=== PATIENT | male | born 1970 | race Caucasian/White ===

== ENCOUNTER 2019-02-16 10:37 | Inpatient (IN) | payer MEDICAID ==
[~2019-02-16] VITALS: Ht 170.2 cm; Wt 68.3 kg
[2019-02-16] MEDS ORDERED: SODIUM CHLORIDE 0.9% 1,000 ML IV ONE ×2 (10:55→12:06)
[2019-02-16] MEDS ORDERED: LEVETIRACETAM 1000MG/100ML 100 ML IV ONE (11:00)
[2019-02-16 11:10] LABS: HEMOGLOBIN. 15.4 g/dL (14.0-18.0); MEAN CORPUSCULAR HEMOGLOBIN 33.9 pg (28.0-32.0); MEAN CORPUSCULAR VOLUME 99.5 fL (80.0-94.0); PLATELET 197 x1000/uL (130-400); RED BLOOD CELL COUNT 4.53 mill/uL (4.7-6.1); RED CELL DISTRIBUTION WIDTH 12.9 % (11.6-14.6)
[2019-02-16 11:14] LABS: CHLORIDE 105 mEq/L (98-107)
[2019-02-16 11:17] LABS: INR 1.1; PARTIAL THROMBOPLASTIN TIME 25.7 sec (23.4-31.0); PROTHROMBIN TIME 11.1 sec (9.1-11.1)
[2019-02-16 11:18] LABS: ETHANOL BLOOD < 10 mg/dL
[2019-02-16 12:12] LABS: PLATELET ESTIMATE NORMAL
[2019-02-16] MEDS ORDERED: HYDROMORPHONE HCL/PF 2MG/ML CPJ IV PRN (12:30)
[2019-02-16] MEDS ORDERED: LORAZEPAM 2MG/ML CPJ IV ONE (12:30)
[2019-02-16] MEDS ORDERED: DIPHENHYDRAMINE 50MG/ML VIAL IV PRN (12:30)
[2019-02-16] MEDS ORDERED: CLONIDINE 0.1MG TABLET PO PRN (12:30)
[2019-02-16] MEDS ORDERED: GUAIFENESIN 200MG/10ML SUGAR FREE UDC PO PRN (12:30)
[2019-02-16] MEDS ORDERED: DOCUSATE SODIUM 100MG CAPSULE PO PRN (12:30)
[2019-02-16] MEDS ORDERED: POTASSIUM CHLORIDE 20MEQ TABLET SR PO ONE (12:30)
[2019-02-16] MEDS ORDERED: NA PHOS,M-B/NA PHOS,DI-BA ENEMA 118ML PR PRN (12:30)
[2019-02-16] MEDS ORDERED: ONDANSETRON HCL 4MG/2ML INJ IV PRN (12:30)
[2019-02-16] MEDS ORDERED: IPRATROPIUM/ALBUTEROL 0.5-3(2.5)MG/3ML NEB INH PRN (12:30)
[2019-02-16] MEDS ORDERED: ACETAMINOPHEN 325MG TABLET PO PRN (12:30)
[2019-02-16] MEDS ORDERED: MAGNESIUM/ALUMINUM HYDROXIDE/SIMETHICONE 30ML UDC PO PRN (12:30)
[2019-02-16] MEDS ORDERED: LORAZEPAM 2MG/ML CPJ IV PRN (12:30)
[2019-02-16 17:37] VITALS: BP 115/73
[2019-02-16] MEDS ORDERED: OMEP20TA2 PO (18:24)
[2019-02-16] MEDS ORDERED: SERT20OR PO (18:24)
[2019-02-16] MEDS ORDERED: TRAZ-212 PO (18:24)
[2019-02-16] MEDS: HYDROCODONE/ACETAMINOPHEN 5/325MG TABLET PO PRN ×2 (18:45→23:50)
[2019-02-16] MEDS: SODIUM CHLORIDE 0.45% 1,000 ML IV SCH (18:59)
[2019-02-16 20:00] VITALS: BP 108/60
[2019-02-16 20:09] LABS: CHLORIDE 109 mEq/L (98-107)
[2019-02-16] MEDS: ENOXAPARIN 40MG/0.4ML SYR SUBCUT SCH (20:33)
[2019-02-17] VITALS: BP 130/64
[2019-02-17 04:00] VITALS: BP 108/59
[2019-02-17 08:00] VITALS: BP 116/76
[2019-02-17 08:02] LABS: CHLORIDE 108 mEq/L (98-107)
[2019-02-17 08:12] LABS: BASOPHILS % 0.2 % (0.0-2.0); EOSINOPHILS % 0.3 % (0.0-5.0); HEMATOCRIT. 37.1 % (42.0-52.0); LYMPHOCYTES % 18.3 % (20.0-50.0); MEAN CORPUSCULAR HEMOGLOBIN 34.3 pg (28.0-32.0); MEAN CORPUSCULAR VOLUME 98.3 fL (80.0-94.0); MEAN PLATELET VOLUME 9.2 fl (7.4-10.4); MONOCYTES % 6.5 % (2.0-8.0); NEUTROPHILS % 74.7 % (40.0-76.0); PLATELET 151 x1000/uL (130-400); RED BLOOD CELL COUNT 3.77 mill/uL (4.7-6.1); RED CELL DISTRIBUTION WIDTH 12.7 % (11.6-14.6)
[2019-02-17 08:13] LABS: LDL CHOLESTEROL 80 mg/dL (5-100)
[2019-02-17 08:15] LABS: HDL CHOLESTEROL 73 mg/dL (40-59)
[2019-02-17 08:16] LABS: T4 FREE 1.19 ng/dL (0.76-1.46)
[2019-02-17] MEDS: ASPIRIN 81MG EC TABLET PO SCH (09:07)
[2019-02-17] MEDS: SODIUM CHLORIDE 0.45% 1,000 ML IV SCH (10:56)
[2019-02-17 16:00] VITALS: BP 152/77
[2019-02-17] MEDS: HYDROCODONE/ACETAMINOPHEN 5/325MG TABLET PO PRN (18:46)
[2019-02-17 20:00] VITALS: BP 134/79
[2019-02-17] MEDS: LEVETIRACETAM 500MG TABLET PO SCH (20:23)
[2019-02-17] MEDS: ENOXAPARIN 40MG/0.4ML SYR SUBCUT SCH (20:23)
[2019-02-17 21:45] LABS: METHADONE URINE SCREEN NEGATIVE (NEGATIVE)
[2019-02-17 21:46] LABS: *AMPHETAMINES SCREEN URINE NEGATIVE (NEGATIVE); *BARBITURATES SCREEN URINE NEGATIVE (NEGATIVE); *BENZODIAZEPINES SCREEN URINE NEGATIVE (NEGATIVE); *COCAINE SCREEN URINE NEGATIVE (NEGATIVE); CANNABINOID URINE SCREEN PRESUMTIVE POSITIVE (NEGATIVE); OPIATES URINE SCREEN NEGATIVE (NEGATIVE); PHENCYCLIDINE URINE SCREEN NEGATIVE (NEGATIVE)
[2019-02-18] VITALS: BP 122/84
[2019-02-18 04:00] VITALS: BP 140/87
[2019-02-18] MEDS: SODIUM CHLORIDE 0.45% 1,000 ML IV SCH (04:26)
[2019-02-18 07:46] LABS: CHLORIDE 105 mEq/L (98-107)
[2019-02-18 08:00] VITALS: BP 138/83
[2019-02-18 08:12] LABS: BASOPHILS % 0.5 % (0.0-2.0); EOSINOPHILS % 1.4 % (0.0-5.0); HEMATOCRIT. 40.9 % (42.0-52.0); HEMOGLOBIN. 13.9 g/dL (14.0-18.0); LYMPHOCYTES % 29.8 % (20.0-50.0); MEAN CORPUSCULAR HEMOGLOBIN 33.7 pg (28.0-32.0); MEAN CORPUSCULAR VOLUME 98.9 fL (80.0-94.0); MEAN PLATELET VOLUME 9.6 fl (7.4-10.4); NEUTROPHILS % 60.3 % (40.0-76.0); PLATELET 142 x1000/uL (130-400); RED BLOOD CELL COUNT 4.14 mill/uL (4.7-6.1)
[2019-02-18] MEDS: ASPIRIN 81MG EC TABLET PO SCH (08:43)
[2019-02-18] MEDS: LEVETIRACETAM 500MG TABLET PO SCH (08:43)
[2019-02-18 11:00] VITALS: BP 128/79
== END 2019-02-18 11:35 | disposition home or self-care (01) | DRG 53 ==
LOC: ER 11:25 → EDBEDREQ 12:09 → 6WST 12:13 → EDBEDREQ 12:17 → ENRESERV 15:23
PROVIDERS: ADMIT Internal Medicine; ATTEND Internal Medicine
DX: G40.89 Other seizures (principal); E86.0 Dehydration; E87.6 Hypokalemia; F10.239 Alcohol dependence with withdrawal, unspecified; F41.9 Anxiety disorder, unspecified; I10 Essential (primary) hypertension; I25.10 Atherosclerotic heart disease of native coronary artery without angina pectoris; Z79.899 Other long term (current) drug therapy
CPT/HCPCS: 36415; 80048; 80061; 80305; 80320; 83735; 84439; 84443; 84484; 93005; 96365; 96366; 96375; 99285; J1650; J1953; J2060; J2405; J7030; G0480